=== PATIENT | female | born 1970 | race Caucasian/White ===

== ENCOUNTER 2017-07-23 10:03 | Emergency (ER) | payer OTHER ==
[~2017-07-23] VITALS: Ht 152.4 cm; Wt 60.8 kg
[2017-07-23 12:27] VITALS: BP 102/66
== END 2017-07-23 12:27 | disposition home or self-care (01) ==
LOC: ED 10:03
DX: G44.209 Tension-type headache, unspecified, not intractable (principal)
CPT/HCPCS: Q0163

== ENCOUNTER 2019-05-17 17:47 | Emergency (ER) | payer OTHER ==
[~2019-05-17] VITALS: Ht 152.4 cm; Wt 61.7 kg
[2019-05-17 17:51] VITALS: Ht 152.4 cm; Wt 61.7 kg
[2019-05-17 21:52] VITALS: BP 101/64
== END 2019-05-17 21:52 | disposition home or self-care (01) ==
LOC: ED 17:47
DX: R51 Headache (principal)
CPT/HCPCS: J0780; J1885